=== PATIENT | female | born 1975 | race Caucasian/White ===

== ENCOUNTER 2020-09-16 11:20 | Observation (INO) | payer OTHER ==
[~2020-09-16] VITALS: Ht 158 cm; Wt 78.5 kg
[2020-09-16] MEDS ORDERED: RINGERS SOLUTION,LACTATED 1,000 ML IV ONE ×2 (11:30→12:00)
[2020-09-16] MEDS ORDERED: RINGERS SOLUTION,LACTATED 1,000 ML IV SCH (13:00)
== END 2020-09-16 15:33 | disposition home or self-care (01) ==
LOC: 4S 11:20
PROVIDERS: ADMIT Obstetrics & Gynecology; ATTEND Obstetrics & Gynecology
DX: Z34.93 Encounter for supervision of normal pregnancy, unspecified, third trimester (principal); Z3A.37 37 weeks gestation of pregnancy
CPT/HCPCS: 59025; 76811; 81001; 96360; 96361; 99219; J7120

== ENCOUNTER 2020-09-20 13:55 | Inpatient (IN) | payer OTHER ==
[~2020-09-20] VITALS: Ht 157.5 cm; Wt 81.6 kg
[2020-09-20 14:16] VITALS: BP 113/72
[2020-09-20] MEDS ORDERED: FentaNYL CITRATE-PF 100 MCG/2 ML VIAL IVP PRN ×2 (16:15→16:25)
[2020-09-20] MEDS ORDERED: RINGERS SOLUTION,LACTATED 1,000 ML IV PRN (16:15)
[2020-09-20] MEDS ORDERED: OXYTOCIN 30 UNITS/LACT RINGERS 500 ML IV ONE (16:15)
[2020-09-20] MEDS ORDERED: LIDOCAINE/PF 1% 30 ML VIAL INJ PRN (16:15)
[2020-09-20] MEDS ORDERED: METOCLOPRAMIDE HCL 5 MG/ML 2 ML VIAL IVP PRN (16:15)
[2020-09-20] MEDS ORDERED: CITRIC ACID/SODIUM CITRATE 30 ML SOLUTION UDCUP PO PRN (16:15)
[2020-09-20] MEDS ORDERED: DINOPROSTONE 10 MG VAGINAL SUPPOSITORY VG ONE (16:15)
[2020-09-20] MEDS ORDERED: METHYLERGONOVINE MALEATE 0.2 MG/ML VIAL IM PRN (16:15)
[2020-09-20] MEDS ORDERED: OXYTOCIN 30 UNITS/LACT RINGERS 500 ML IV PRN (16:15)
[2020-09-20 17:02] LABS: BASOPHILS % (AUTO) 0.7 % (0.0-2.0); HEMATOCRIT 32.4 % (36-46); LYMPHOCYTES # (AUTO) 1.6 K/uL (1.0-4.8); LYMPHOCYTES % (AUTO) 22.6 % (22.0-44.0); MEAN CORPUSCULAR HEMOGLOBIN 26.8 pg (26.0-34.0); MEAN CORPUSCULAR HGB CONC 34.1 G/dL (31.0-37.0); MEAN CORPUSCULAR VOLUME 79 fL (80-100); MONOCYTES # (AUTO) 0.4 K/uL (0.1-1.0); MONOCYTES % (AUTO) 4.9 % (2.0-9.0); NEUTROPHILS # (AUTO) 5.1 K/uL (1.8-7.7); NEUTROPHILS % (AUTO) 70.8 % (40.0-70.0); PLATELET COUNT (AUTO)-OB 211 K/uL (150-450); RED BLOOD CELL COUNT(AUTO) 4.12 MIL/uL (4.00-5.20)
[2020-09-20] MEDS: RINGERS SOLUTION,LACTATED 1,000 ML IV SCH ×2 (17:19→22:39)
[2020-09-20 19:25] LABS: COVID AG,FIA SOURCE NASOPHARYNGEAL
[2020-09-20] MEDS ORDERED: OXYGEN THERAPY IH SCH (20:00)
[2020-09-20] MEDS ORDERED: CALC-1038 PO (20:17)
[2020-09-20] MEDS ORDERED: PREN1TAB80 PO (20:18)
[2020-09-21] MEDS ORDERED: -PHARMACY NOTE- MISC ONE (04:15)
[2020-09-21] MEDS: MISOPROSTOL 50 MCG TABLET PO SCH ×4 (06:04→20:09)
[2020-09-21] MEDS ORDERED: RINGERS SOLUTION,LACTATED 1,000 ML IV ONE (06:53)
[2020-09-21] MEDS: RINGERS SOLUTION,LACTATED 1,000 ML IV SCH ×3 (06:55→23:02)
[2020-09-21] MEDS ORDERED: BUTORPHANOL TARTRATE 2 MG/ML VIAL IVP PRN (21:30)
[2020-09-22] MEDS: MISOPROSTOL 50 MCG TABLET PO SCH ×2 (00:09→04:19)
[2020-09-22] MEDS ORDERED: OXYTOCIN 30 UNITS/LACT RINGERS 500 ML IV PRN (07:30)
[2020-09-22] MEDS: RINGERS SOLUTION,LACTATED 1,000 ML IV SCH ×3 (07:33→22:46)
[2020-09-22] MEDS ORDERED: OXYTOCIN 10 UNITS/ML VIAL IM ONE (12:00)
[2020-09-22] MEDS ORDERED: ROPIVACAINE HCL/PF 0.2% 100 ML ED ONE (12:45)
[2020-09-22] MEDS ORDERED: NALBUPHINE HCL 10 MG/ML VIAL IVP PRN (13:15)
[2020-09-22] MEDS ORDERED: DiphenhydrAMINE HCL 50 MG/ML VIAL IVP PRN ×2 (13:15→17:45)
[2020-09-22] MEDS ORDERED: ONDANSETRON HCL 4 MG/2 ML VIAL IVP PRN ×2 (13:15→17:45)
[2020-09-22] MEDS ORDERED: ROPIVACAINE HCL/PF 0.2% 100 ML ED PRN (13:15)
[2020-09-22] MEDS ORDERED: MINERAL OIL 30 ML UDCUP VG ONE (15:30)
[2020-09-22] MEDS ORDERED: KETOROLAC TROMETHAMINE 30 MG/ML VIAL ONE (16:45)
[2020-09-22] MEDS ORDERED: DEXAMETHASONE SOD PHOS 4 MG/ML VIAL ONE (16:45)
[2020-09-22] MEDS ORDERED: FentaNYL CITRATE-PF 100 MCG/2 ML VIAL ONE (16:45)
[2020-09-22] MEDS ORDERED: MORPHINE SULFATE/PF 1 MG/ML 10 ML AMP ONE (16:45)
[2020-09-22] MEDS ORDERED: MIDAZOLAM HCL 2 MG/2 ML VIAL ONE (16:45)
[2020-09-22] MEDS ORDERED: LIDOCAINE/PF 2% 5 ML VIAL ONE (16:45)
[2020-09-22] MEDS ORDERED: ONDANSETRON HCL 4 MG/2 ML VIAL ONE (16:45)
[2020-09-22] MEDS ORDERED: OxyCODONE HCL/ACETAMINOPHEN 5-325 MG TABLET PO PRN ×2 (17:45→18:00)
[2020-09-22] MEDS ORDERED: NALOXONE HCL 0.4 MG/ML VIAL IVP PRN (17:45)
[2020-09-22] MEDS ORDERED: LANOLIN 7 GM OINTMENT TP PRN (18:00)
[2020-09-22] MEDS ORDERED: OXYTOCIN 30 UNITS/LACT RINGERS 500 ML IV ONE (18:00)
[2020-09-22] MEDS ORDERED: BENZOCAINE 20%/MENTHOL 56 GM SPRAY CANISTER TP PRN (19:30)
[2020-09-22] MEDS ORDERED: GLYCERIN/WITCH HAZEL LEAF 40 PADS JAR TP PRN (19:30)
[2020-09-22] MEDS ORDERED: OXYGEN THERAPY IH SCH ×2 (20:00)
[2020-09-22] MEDS: MAGNESIUM HYDROXIDE SUSPENSION 30 ML UDCUP PO SCH (21:20)
[2020-09-22] MEDS: KETOROLAC TROMETHAMINE 30 MG/ML VIAL IVP SCH (23:57)
[2020-09-23] MEDS: KETOROLAC TROMETHAMINE 30 MG/ML VIAL IVP SCH ×2 (07:01→13:20)
[2020-09-23] MEDS: RINGERS SOLUTION,LACTATED 1,000 ML IV SCH (07:06)
[2020-09-23 07:11] LABS: BASOPHILS % (AUTO) 0.1 % (0.0-2.0); EOSINOPHILS % (AUTO) 0 % (1.0-6.0); HEMATOCRIT 31.3 % (36-46); HEMOGLOBIN 10.5 g/dL (12.0-16.0); LYMPHOCYTES # (AUTO) 1.1 K/uL (1.0-4.8); LYMPHOCYTES % (AUTO) 9.2 % (22.0-44.0); MEAN CORPUSCULAR HEMOGLOBIN 26.5 pg (26.0-34.0); MEAN CORPUSCULAR HGB CONC 33.4 G/dL (31.0-37.0); MEAN CORPUSCULAR VOLUME 79 fL (80-100); MONOCYTES # (AUTO) 0.4 K/uL (0.1-1.0); MONOCYTES % (AUTO) 3.4 % (2.0-9.0); PLATELET COUNT (AUTO)-OB 212 K/uL (150-450); RED BLOOD CELL COUNT(AUTO) 3.94 MIL/uL (4.00-5.20); RED CELL DISTRIBUTION WIDTH 14.5 % (11.5-14.5)
[2020-09-23 07:30] LABS: NEUTROPHILS % (AUTO) 87.3 % (40.0-70.0)
[2020-09-23] MEDS: MAGNESIUM HYDROXIDE SUSPENSION 30 ML UDCUP PO SCH ×2 (09:30→22:24)
[2020-09-24] MEDS: OxyCODONE HCL/ACETAMINOPHEN 5-325 MG TABLET PO PRN ×2 (01:12→07:43)
[2020-09-24] MEDS: IBUPROFEN 800 MG TABLET PO PRN ×2 (01:13→07:43)
[2020-09-24] MEDS ORDERED: ACETAMINOPHEN 325 MG TABLET PO PRN (08:45)
[2020-09-24] MEDS ORDERED: OXYC5 PO (09:47)
[2020-09-24] MEDS ORDERED: DOCU-275 PO (09:48)
[2020-09-24] MEDS ORDERED: FERR-89 PO (09:49)
== END 2020-09-24 14:35 | disposition home or self-care (01) | DRG 787 ==
LOC: OBSVTOIN 13:55 → 4S 13:55
PROVIDERS: ADMIT Obstetrics & Gynecology; ATTEND Obstetrics & Gynecology
PROC: 10D00Z1 Extraction of Products of Conception, Low, Open Approach (ICD-10-PCS; principal; 2020-09-22)
DX: O61.9 Failed induction of labor, unspecified (principal); O41.03X0 Oligohydramnios, third trimester, not applicable or unspecified; Z20.828 Contact with and (suspected) exposure to other viral communicable diseases; Z3A.38 38 weeks gestation of pregnancy; Z37.0 Single live birth
CPT/HCPCS: 76805; 86850; 86900; 86901; 87426; J0690; J1100; J1885; J2250; J2405; J2590; J2765; J2795; J3010; J3490; J7120